=== PATIENT | female | born 1980 | race American Indian/Alaskan Native ===

== ENCOUNTER 2017-07-26 13:39 | Emergency (ER) | payer SELFPAY ==
[2017-07-26 13:44] VITALS: BP 123/74
[2017-07-26 15:04] LABS: Bilirubin,Urine NEG (Negative); Blood,Urine MOD (Negative); Ketones,Urine 20 mg/dL (Negative); Leukocyte Esterase,Urine NEG (Negative); Mucus,Urine 1+ /HPF; Nitrite,Urine NEG (Negative); Protein,Urine <15 mg/dL mg/dL (Negative)
--- NOTE | 2017-07-26 15:04 | Emergency Department Report ---
Chief Complaint: Abdominal Pain Stated Complaint: TIRED/DIZZY/ABDOMINAL PAIN Time Seen by Provider: 07/26/17 14:30 - HPI History of Present Illness: Patient is a 37-year-old female who is presenting with 1 week of suprapubic tenderness. Patient denies dysuria or urinary frequency vaginal discharge or vaginal bleeding diarrhea or constipation at this time. Patient has had a mild headache and some mild fatigue. She denies any blood in the stool or black tarry stools also. Patient states that her pain is a 5 out of 10 and is aching. - ROS Review of Systems: Review of system negative except for elements in HPI - Exam Vital Signs: Vital Signs 07/26/17 13:42 Temperature 98.1 F Pulse Rate 91 H Respiratory 20 Rate Blood Pressure 123/74 O2 Sat by Pulse 97 Oximetry Physical Exam: Focused physical exam abdomen exam soft non-tender no rebound or guarding lungs clear to auscultation heart tones normal is no acute distress MSE screening note: Focused history and physical exam performed. Due to findings the following was ordered: Urinalysis and S have been ordered ED Disposition for MSE Condition: Stable Instructions: Abdominal Pain (ED) Referrals: MAGI HORVATH MD [Primary Care Provider] - 3-5 Days
--- NOTE | 2017-07-26 16:34 | Emergency Department Report ---
HPI - General Chief Complaint: Abdominal Pain Time Seen by Provider: 07/26/17 14:30 - HPI HPI: Patient is a 37-year-old female that history of anemia presents to ED complaining of fatigue and weakness for about a week. Patient states she is eating appropriately, drinking enough fluids but just this fatigue most times at work. 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 She states her pain is more in the groin region than abdominal. She denies any other symptoms. Patient was initially screened by Dr. Villeda. See MSE note for more of HPI ED Past Medical Hx - Past Medical History Hx Hypertension: No Hx GERD: Yes Hx Renal Disease: No Hx Headaches / Migraines: Yes (migraines) Hx Seizures: No Hx Psychiatric Treatment: Yes (anxiety) Hx Asthma: No Additional medical history: angina - Social History Smoking Status: Never Smoker Substance Use Type: None - Medications Home Medications: Home Medications Medication Instructions Recorded Confirmed Last Taken Type HYDROcodone/APAP 5-325 [[place] 1 each PO Q6HR PRN #10 tablet 07/05/15 Unknown Rx 5-325 mg TAB] Ondansetron [Zofran Odt] 4 mg PO TID #9 tab.rapdis 07/12/15 Unknown Rx traMADol [Ultram] 50 mg PO Q6HR PRN #15 tablet 07/12/15 Unknown Rx Cyanocobalamin (Vitamin B-12) 500 mcg SL DAILY #30 tab.rapdis 07/26/17 Unknown Rx [B-12] Iron,Carbonyl/Ascorbic Acid [Iron 1 each PO DAILY #30 tablet 07/26/17 Unknown Rx 100-Vitamin C Tablet] ED Review of Systems ROS: Stated complaint: TIRED/DIZZY/ABDOMINAL PAIN Other details as noted in HPI Constitutional: denies: chills, fever Eyes: denies: eye pain, eye discharge, vision change ENT: denies: ear pain, throat pain Respiratory: denies: cough, shortness of breath, wheezing Cardiovascular: denies: chest pain, palpitations Endocrine: no symptoms reported Gastrointestinal: denies: abdominal pain, nausea, diarrhea Genitourinary: denies: urgency, dysuria, discharge Musculoskeletal: denies: back pain, joint swelling, arthralgia Skin: denies: rash, lesions Neurological: denies: headache, weakness, paresthesias Psychiatric: denies: anxiety, depression Hematological/Lymphatic: denies: easy bleeding, easy bruising Physical Exam - Physical Exam Vital Signs: Vital Signs 07/26/17 13:42 Temperature 98.1 F Pulse Rate 91 H Respiratory 20 Rate Blood Pressure 123/74 O2 Sat by Pulse 97 Oximetry Physical Exam: GENERAL: Alert and oriented x3, no apparent distress, Normal Gait, atraumatic. HEAD: Head is normocephalic and a-traumatic. LUNGS: Symetrical with respiration, No wheezing, no rales or crackles, CTAB. HEART: S1, S2 present, regular rate and rhythm without murmur, no rubs, no gallops. Non tender to palpation ABDOMEN: No organomegaly was noted,Positive bowel sounds, soft, and non- distended. . Nontender to palpation on all Quadrants, NO CVA tenderness. EXTREMITIES/MUSCULOSKELETAL: No cyanosis, clubbing, rash, lesions or edema. Full ROM bilaterally. UE/LE Pulses 2+ bilaterally. NEUROLOGIC: The patient is cooperative with no focal neurologic deficit SKIN: Warm and dry, No lesions, No ulceration or induration present. ED Course Vital Signs 07/26/17 13:42 Temperature 98.1 F Pulse Rate 91 H Respiratory 20 Rate Blood Pressure 123/74 O2 Sat by Pulse 97 Oximetry ED Medical Decision Making - Medical Decision Making A 37-year-old female presents with fatigue ED course: Urinalysis negative. test negative I discussed the patient's son a history of anemia this may be the cause of her fatigue and for her to go back to her primary care doctor to have a CBC done. I discussed the patient I will send her home today on some iron pills and B12 for energy. I discussed with patient that she should follow-up with the primary -care patient states she will make an appointment for primary care physician in [facility] in [facility]. Patient is in no acute distress. She is alert and oriented 3 on this instructions given. Critical care attestation.: If time is entered above; I have spent that time in minutes in the direct care of this critically ill patient, excluding procedure time. ED Disposition Clinical Impression: Fatigue Qualifiers: Fatigue type: other Qualified Code(s): R53.83 - Other fatigue Disposition: DC-01 TO HOME OR SELFCARE Is pt being admited?: No Does the pt Need Aspirin: No Condition: Stable Instructions: Abdominal Pain (ED), Fatigue (ED), Weakness (ED) Additional Instructions: Make sure to follow up with the primary care physician as discussed. Take all your medications as you've been prescribed. If you have any worsening symptoms or develop new symptoms please return to ED immediately. Prescriptions: Cyanocobalamin (Vitamin B-12) [B-12] 500 mcg SL DAILY #30 tab.rapdis Iron,Carbonyl/Ascorbic Acid [Iron 100-Vitamin C Tablet] 1 each PO DAILY #30 tablet Referrals: MAGI HORVATH MD [Primary Care Provider] - 3-5 Days [facility] [Outside] - 3-5 Days Forms: Work/School Release Form(ED) Time of Disposition: 16:46
== END 2017-07-26 17:02 | disposition home or self-care (01) ==
LOC: ED 13:39
DX: R53.83 Other fatigue (principal); R53.1 Weakness; R10.2 Pelvic and perineal pain; K21.9 Gastro-esophageal reflux disease without esophagitis; G43.909 Migraine, unspecified, not intractable, without status migrainosus; F41.9 Anxiety disorder, unspecified; Z86.2 Personal history of diseases of the blood and blood-forming organs and certain disorders involving the immune mechanism; Z88.0 Allergy status to penicillin
CPT/HCPCS: 81001; 81025; 99283

== ENCOUNTER 2017-12-30 17:40 | Emergency (ER) | payer MEDICAID ==
[2017-12-30 17:52] VITALS: BP 113/89
[2017-12-30] MEDS ORDERED: TORADOL IM ONE (19:27)
--- NOTE | 2017-12-30 19:35 | Emergency Department Report ---
ED Back Pain/Injury HPI - General Chief Complaint: Urogenital-Female Stated Complaint: BACK PAIN Time Seen by Provider: 12/30/17 18:51 Source: patient Limitations: No Limitations - History of Present Illness Initial Comments: This is a 37-year-old female nontoxic, well nourished in appearance, no acute signs of distress presents to the ED with c/o of acute lower back pain. Patient stated that the last week she was mowing the lawn and then developed pain gradually. Patient stated that she has history of back pain and has been diagnosed with UTI and now is concerned that she develoepd UTI. Patient denies any radiation of pain. Patient denies any trauma. Denies any bladder or bowel instability. Patient denies any urinary symptoms. Denies any fever, chills, nausea, abdominal pain, vomiting, headache, stiff neck, chest pain or shortness of breath. Patient denies any numbness or tingling. Patient states allergies to PCN. Past medical history includes GERD, migraine headaches, anxiety and angina. MD Complaint: back pain -: week(s) (1) Similar Symptoms Previously: No Radiation: none Severity: mild Severity scale (0 -10): 8 Quality: aching Consistency: constant Improves With: none, immobilization, supine Worsens With: movement, walking Context: turning/twisting Associated Symptoms: denies other symptoms. denies: confusion, weakness, chest pain, numbness, difficulty walking, cough, difficulty urinating, diaphoresis, incontinence, fever/chills, constipation, headaches, abdominal pain, loss of appetite, malaise, nausea/vomiting, rash, seizure, shortness of breath, syncope - Related Data Previous Rx's Medication Instructions Recorded Last Taken Type HYDROcodone/APAP 5-325 [[place] 1 each PO Q6HR PRN #10 tablet 07/05/15 Unknown Rx 5-325 mg TAB] Ondansetron [Zofran Odt] 4 mg PO TID #9 tab.rapdis 07/12/15 Unknown Rx traMADol [Ultram] 50 mg PO Q6HR PRN #15 tablet 07/12/15 Unknown Rx Cyanocobalamin (Vitamin B-12) 500 mcg SL DAILY #30 tab.rapdis 07/26/17 Unknown Rx [B-12] Iron,Carbonyl/Ascorbic Acid [Iron 1 each PO DAILY #30 tablet 07/26/17 Unknown Rx 100-Vitamin C Tablet] Ciprofloxacin HCl [Ciprofloxacin 500 mg PO Q12H 5 Days tab 12/30/17 Unknown Rx TAB] Fluconazole [Diflucan TAB] 150 mg PO ONCE #1 tablet 12/30/17 Unknown Rx Allergies Allergy/AdvReac Type Severity Reaction Status Date / Time Penicillins Allergy Anaphylaxis Verified 06/30/15 07:32 ED Review of Systems ROS: Stated complaint: BACK PAIN Other details as noted in HPI Constitutional: denies: chills, fever Eyes: denies: eye pain, eye discharge, vision change ENT: denies: ear pain, throat pain Respiratory: denies: cough, shortness of breath, wheezing Cardiovascular: denies: chest pain, palpitations Endocrine: no symptoms reported Gastrointestinal: denies: abdominal pain, nausea, diarrhea Genitourinary: denies: urgency, dysuria, discharge Musculoskeletal: back pain. denies: joint swelling, arthralgia Skin: denies: rash, lesions Neurological: denies: headache, weakness, paresthesias Psychiatric: denies: anxiety, depression Hematological/Lymphatic: denies: easy bleeding, easy bruising ED Past Medical Hx - Past Medical History Hx Hypertension: No Hx GERD: Yes Hx Renal Disease: No Hx Headaches / Migraines: Yes (migraines) Hx Seizures: No Hx Psychiatric Treatment: Yes (anxiety) Hx Asthma: No Additional medical history: angina - Surgical History Past Surgical History?: No - Social History Smoking Status: Never Smoker Substance Use Type: None - Medications Home Medications: Home Medications Medication Instructions Recorded Confirmed Last Taken Type HYDROcodone/APAP 5-325 [[place] 1 each PO Q6HR PRN #10 tablet 07/05/15 Unknown Rx 5-325 mg TAB] Ondansetron [Zofran Odt] 4 mg PO TID #9 tab.rapdis 07/12/15 Unknown Rx traMADol [Ultram] 50 mg PO Q6HR PRN #15 tablet 07/12/15 Unknown Rx Cyanocobalamin (Vitamin B-12) 500 mcg SL DAILY #30 tab.rapdis 07/26/17 Unknown Rx [B-12] Iron,Carbonyl/Ascorbic Acid [Iron 1 each PO DAILY #30 tablet 07/26/17 Unknown Rx 100-Vitamin C Tablet] Ciprofloxacin HCl [Ciprofloxacin 500 mg PO Q12H 5 Days tab 12/30/17 Unknown Rx TAB] Fluconazole [Diflucan TAB] 150 mg PO ONCE #1 tablet 12/30/17 Unknown Rx ED Physical Exam - General Limitations: No Limitations General appearance: alert, in no apparent distress - Head Head exam: Present: atraumatic, normocephalic - Eye Eye exam: Present: normal appearance Pupils: Present: normal accommodation - ENT ENT exam: Present: normal exam, mucous membranes moist - Neck Neck exam: Present: normal inspection, full ROM. Absent: tenderness, meningismus, lymphadenopathy - Respiratory Respiratory exam: Present: normal lung sounds bilaterally. Absent: respiratory distress, wheezes, rales, rhonchi, stridor, chest wall tenderness, accessory muscle use, decreased breath sounds, prolonged expiratory - Cardiovascular Cardiovascular Exam: Present: regular rate, normal rhythm, normal heart sounds. Absent: irregular rhythm, systolic murmur, diastolic murmur, rubs, gallop - GI/Abdominal GI/Abdominal exam: Present: soft, normal bowel sounds. Absent: distended, tenderness, guarding, rebound, rigid, diminished bowel sounds - Rectal Rectal exam: Present: deferred - Extremities Exam Extremities exam: Present: normal inspection, full ROM, normal capillary refill - Back Exam Back exam: Present: normal inspection, full ROM, paraspinal tenderness (lumbar region). Absent: tenderness, CVA tenderness (R), CVA tenderness (L), muscle spasm, vertebral tenderness, rash noted - Expanded Back Exam Expanded Back exam: Absent: saddle anesthesia Back exam: Negative Straight Leg Raising: Left, Right - Neurological Exam Neurological exam: Present: alert, oriented X3, normal gait - Psychiatric Psychiatric exam: Present: normal affect, normal mood - Skin Skin exam: Present: warm, dry, intact, normal color. Absent: rash ED Course Vital Signs 12/30/17 17:49 Temperature 98.5 F Pulse Rate 96 H Respiratory 16 Rate Blood Pressure 113/89 O2 Sat by Pulse 100 Oximetry - Reevaluation(s) Reevaluation #1: 12/30/17 19:37 Patient is speaking in full sentences with no signs of distress noted. ED Medical Decision Making - Medical Decision Making This is a 37-year-old male that presents with UTI. Patient is stable was examined by me. There is no spinal tenderness. There is no cauda equina syndrome during examination. No bladder or bowel instability. Patient received Toradol 60 mg IM in the ED which preceded his symptoms has improved but not relieved. There is no CVA tenderness. Vitals signs stable. No fever. Ua obtained with UTI. Patient is allergic to PCN type 1 so patient received Levo 750 PO in the ED as initial dose. Patient is discharged with Motrin and Cipro. Urine culture pending. Patient was referred to Follow-up with a primary care doctor in 3-5 days or if symptoms worsen and continue return to emergency room as soon as possible. At time of discharge, the patient does not seem toxic or ill in appearance. No acute signs of distress noted. Patient agrees to discharge treatment plan of care. No further questions noted by the patient. This chart is dictated with using [employer] Critical care attestation.: If time is entered above; I have spent that time in minutes in the direct care of this critically ill patient, excluding procedure time. ED Disposition Clinical Impression: UTI (urinary tract infection) Qualifiers: Urinary tract infection type: site unspecified Hematuria presence: with hematuria Qualified Code(s): N39.0 - Urinary tract infection, site not specified ; R31.9 - Hematuria, unspecified Disposition: DC-01 TO HOME OR SELFCARE Is pt being admited?: No Does the pt Need Aspirin: No Condition: Stable Instructions: Urinary Tract Infection in Women (ED), Ciprofloxacin (By mouth), Ibuprofen (By mouth) Additional Instructions: Follow-up with a primary care doctor in 3-5 days or if symptoms worsen and continue return to emergency room as soon as possible. Prescriptions: Ciprofloxacin HCl [Ciprofloxacin TAB] 500 mg PO Q12H 5 Days tab Fluconazole [Diflucan TAB] 150 mg PO ONCE #1 tablet Referrals: PRIMARY MD ROCK [Primary Care Provider] - 3-5 Days CAILIN DEE MD [Staff Physician] - 3-5 Days [facility] [Outside] - 3-5 Days [facility] [Outside] - 3-5 Days Forms: Work/School Release Form(ED)
[2017-12-30 20:03] LABS: HCG Qualitative,Urine Negative (Negative)
[2017-12-30 20:09] LABS: Bacteria,Urine 2+ /HPF (Negative); Bilirubin,Urine NEG (Negative); Blood,Urine MOD (Negative); Color,Urine Yellow (Yellow); Mucus,Urine 2+ /HPF
[2017-12-30 20:11] LABS: WBC,Urine > 182.0 /HPF (0.0-6.0)
[2017-12-30] MEDS ORDERED: LEVAQUIN PO ONE (20:17)
== END 2017-12-30 20:45 | disposition home or self-care (01) ==
LOC: ED 17:40
DX: N39.0 Urinary tract infection, site not specified (principal); K21.9 Gastro-esophageal reflux disease without esophagitis
CPT/HCPCS: 81001; 81025; 87086; 96372; 99283; J1885; 87076; 87186

== ENCOUNTER 2019-04-21 16:33 | Emergency (ER) | payer MEDICAID ==
--- NOTE | 2019-04-21 17:20 | Emergency Department Report ---
Blank Doc - Documentation Documentation: This is a 38-year-old female that presents with URI symptoms. This initial assessment/diagnostic orders/clinical plan/treatment(s) is/are subject to change based on patient's health status, clinical progression and re- assessment by fellow clinical providers in the ED. Further treatment and workup at subsequent clinical providers discretion. Patient/guardians urged not to elope from the ED as their condition may be serious if not clinically assessed and managed. Initial orders include: 1- Patient sent to [facility] for further evaluation and treatment 2- CXR
--- NOTE | 2019-04-21 18:06 | XRay Report ---
CHEST PA AND LATERAL VIEWS INDICATION: cough. COMPARISON: None. FINDINGS: Support devices: None. Heart: Within normal limits. Lungs/Pleura: No acute pulmonary or pleural findings. IMPRESSION: 1. No significant abnormality. Signer Name: Barry Graves MD Signed: 04/21/2019 6:01 PM Workstation Name: [id number]
== END 2019-04-21 19:30 | disposition left against medical advice (07) ==
LOC: ED 16:33
DX: R05 Cough (principal); Z53.21 Procedure and treatment not carried out due to patient leaving prior to being seen by health care provider
CPT/HCPCS: 71046